=== PATIENT | male | born 1995 | race Asian ===

== ENCOUNTER 2018-02-07 14:38 | Emergency (ER) | payer MEDICAID ==
[~2018-02-07] VITALS: Ht 180.3 cm; Wt 72.6 kg
[~2018-02-07 14:38] MED LIST: ABILIFY2 MG ORAL; ZOLOFT25 MG ORAL
[2018-02-07] MEDS ORDERED: LORazepam 1mg tab ORAL ONE (15:15)
[2018-02-07 15:35] VITALS: BP 134/69
--- NOTE | 2018-02-07 15:57 | Emergency Room Report ---
History of Present Illness General Chief Complaint: Behavioral Complaint Source: Patient, EMS Present Illness HPI This patient is brought in by EMS. He presents because he is very anxious after doing methamphetamine and heroin this morning. He states that he did try using his Abilify and Zoloft without relief. He states that he is hallucinating. He is very agitated. He has no specific complaints. Allergies: Coded Allergies: CEPHALEXIN (Unverified Allergy, Unknown, 02/07/18) Patient History Past Medical History: psych hx Social History: Reports: drug use; Denies: smoking, alcohol use Reviewed Nursing Documentation: PMH: Agreed; PSxH: Agreed Nursing Documentation-PMH History Of Psychiatric Problem: Yes Review of Systems All Other Systems: negative except mentioned in HPI Physical Exam Vital Signs Date Time Temp Pulse Resp B/P (MAP) Pulse Ox O2 Delivery O2 Flow Rate FiO2 02/07/18 14:26 97.2 112 20 159/98 98 Room Air 97.2 Sp02 EP Interpretation: reviewed, normal General Appearance: no apparent distress, alert, GCS 15, non-toxic Head: normocephalic, atraumatic Eyes: bilateral eye normal inspection, bilateral eye PERRL ENT: hearing grossly normal, normal pharynx, no angioedema, normal voice Neck: full range of motion, supple/symm/no masses Respiratory: chest non-tender, lungs clear, normal breath sounds, no respiratory distress, no retraction, no accessory muscle use, speaking full sentences Cardiovascular #1: tachycardia Gastrointestinal: normal bowel sounds, non tender, soft, non-distended, no guarding, no rebound Rectal: deferred Musculoskeletal: back normal, gait/station normal, normal range of motion, non- tender Neurologic: alert, oriented x3, responsive, motor strength/tone normal, sensory intact, speech normal Psychiatric: judgement/insight normal, memory normal, no suicidal/homicidal ideation, anxious Skin: normal color, no rash, warm/dry, well hydrated Medical Decision Making Medical: Substance Abuse Diagnostic Impression: Primary Impression: Drug abuse ER Course This patient presents anxious and hallucinating after using methamphetamine and heroin this morning. He is hallucinating. He is redirectable. He is anxious. I did give him oral Ativan. He requested to leave stating that he felt better. 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 He was concerned about the medical bill that he would be getting. Regardless, the patient was not aggressive and was requesting to leave. He was educated on the dangers of drug use. He indicated understanding. He eloped without his discharge paperwork. Last Vital Signs Date Time Temp Pulse Resp B/P (MAP) Pulse Ox O2 Delivery O2 Flow Rate FiO2 02/07/18 14:26 97.2 112 20 159/98 98 Room Air 97.2 Status: improved Disposition: ELOPED Condition: Improved Referrals: NOT CHOSEN [facility]TE/,REFERRING (PCP) JOEY FLORES D.O. Feb 07, 2018 15:57
== END 2018-02-07 16:00 | disposition home or self-care (01) ==
LOC: EDBD 14:38 → EMR 15:47
DX: F15.10 Other stimulant abuse, uncomplicated (principal); F11.10 Opioid abuse, uncomplicated; Z88.1 Allergy status to other antibiotic agents; R44.3 Hallucinations, unspecified; F41.9 Anxiety disorder, unspecified
CPT/HCPCS: 99282